=== PATIENT | female | born 1960 | race Caucasian/White ===

== ENCOUNTER 2021-01-08 21:41 | Emergency (ER) | payer OTHER, SELFPAY ==
[2021-01-08 21:44] VITALS: BP 120/76; PULSE 76; RESP 20; TEMP 36.6; O2SAT 99; BMI 18.6
--- NOTE | 2021-01-08 23:30 | ED.ALLEREA ---
HPI - Allergic Reaction General Chief complaint: Allergic Reaction Stated complaint: Allergic Reaction Time Seen by Provider: 01/08/21 22:57 Source: patient Mode of arrival: ambulatory Limitations: no limitations History of Present Illness HPI narrative: 60-year-old female who presents emergency department for evaluation of allergic reaction after drinking wine. She states that in the past sometimes after drinking white line and drinking beer she will get an allergic reaction of her face. She states that between 6:00 p.m. and 8:00 p.m. she drinking half a glass of white wine. She states that when she got home around 8:15 p.m. she began sneezing. She then developed a rash over the bridge of her nose and itchiness in the area of the rash. The rash spread across her face. She then had some tightness in her throat. She took loratadine 5 mg orally with no improvement of her symptoms. She states she then developed heart racing sensation. She denied lightheadedness, dizziness, nausea, vomiting, rash or pruritus on other parts of her body. Related Data Previous Rx's Medication Instructions Recorded prednisone 20 mg tablet 60 mg PO DAILY 5 Days #15 tab 01/08/21 Allergies Allergy/AdvReac Type Severity Reaction Status Date / Time chlorhexidine Allergy Unknown RASH Unverified 02/22/20 17:03 Review of Systems Review of Systems: Yes all other systems are reviewed and are negative [facility] Past Medical History [facility] Narrative: Past medical history: None social history: She denies tobacco use. She occasionally drinks alcohol. She denies drug use. Social History Social History Advance Directives: No Patient : No Physical Exam Vital Signs: Vital Signs: Last Vital Signs Temp 97.8 F 01/08/21 21:44 Pulse 76 01/08/21 21:44 Resp 20 01/08/21 21:44 BP 120/76 01/08/21 21:44 Pulse Ox 99 01/08/21 21:44 Body Mass Index 18.6 Const: General: cooperative and no acute distress Orientation/consciousness: oriented to person and oriented to place Limitations: no limitations HENMT: Head: Yes normal to inspection, Yes normocephalic and Yes atraumatic Ears: external ears normal General nose exam: Normal external nose present Face and sinus: Yes erythema (Over the bridge of the nose and bilateral zygoma area (butterfly pattern)) Mouth: Normal oral and palatal mucosa present Throat: Yes posterior oropharynx normal Eyes: General: appearance normal, both eyes and all related structures Pupils: Equal, round and reactive pupils present Neck: Neck: Yes normal visual inspection, Yes no lymphadenopathy, Yes trachea midline and Yes supple Chest: Chest palpation & inspection: normal inspection of the chest and normal palpation of entire chest wall Resp: Effort & Inspection: normal respiratory effort and able to speak in complete sentences Auscultation: clear to auscultation bilaterally Cardio: Rate: regular rate Rhythm: regular rhythm Heart sounds: S1 normal heart sound present, S2 normal heart sound present and no murmurs GI: Inspection: Yes normal to inspection Palpation (GI): Soft to palpation, nontender and no guarding Auscultation: normal bowel sounds : General: Yes no CVA tenderness Back/Spine/Pelvis: Back: no CVA tenderness Skin: Other: Rash over the bridge of the face extending bilaterally over the zygoma areas and a butterfly pattern, not warm to the touch, blanches with pressure, no urticaria Neuro: General: oriented to person and oriented to place Cranial nerves: Yes CN's II-XII intact bilaterally and Yes Equal, round and reactive pupils present Cognition (Neuro): normal cognition Motor exam (neuro): 5/5 motor strength present throughout Extrem: General: Yes normal to inspection Psych: Appearance: grossly normal Speech and movement: Normal speech and movement present Affect: normal affect Attitude: cooperative Thought process: Normal thought process present Thought content: Normal thought content present Course Course Course Narrative: 60-year-old female who presents emergency department for evaluation of allergic reaction after drinking white line. Patient's physical examination did reveal an erythematous rash of her face involving the bridge of the nose and zygoma areas bilaterally a butterfly pattern. The patient had no other findings on her examination. The patient's presentation is consistent with an allergic reaction most likely secondary to white wine. She states that she cannot take Benadryl since it makes her hyperactive. The patient was given Pepcid 20 mg orally and prednisone 60 mg orally. She was advised to take prednisone 60 mg once a day for 5 days, Pepcid 20 mg once a day for 5 days and loratadine 10 mg daily. The patient was given verbal and printed instructions prior to discharge. The patient was advised to follow-up with her PCP in 2 days and to return to the emergency department if her symptoms get worse or if she develops any new symptoms that are concerning to her. Discharge Plan Discharge Clinical Impression: Allergic reaction Patient Disposition: Home, Self-Care Instructions: Allergies (ED) Additional Instructions: Your presentation and facial rash are consistent with allergic reaction. This is most likely caused by you drinking white wine. You should avoid white wine in the future. Take loratadine 10 mg daily for 5 days. Take prednisone 20 mg pills, 3 pills once a day for 5 days. Take Pepcid 20 mg pills 1 pill once a day for 5 days. Pepcid as an antihistamine and should help reverse earlier Aki reaction. Follow-up with your doctor in 2 days. Please return to the emergency department if your symptoms get worse or if you develop any symptoms that are concerning to you. Prescriptions: New prednisone 20 mg tablet 60 mg PO DAILY 5 Days Qty: 15 RF: 0
[2021-01-08] MEDS: predniSONE 20 MG TABLET 60 MG PO (23:55)
[2021-01-08] MEDS: Famotidine 20 MG TABLET PO (23:55)
--- NOTE | 2021-01-08 23:56 | PC.NURSE ---
Medicated per MAR.
== END 2021-01-08 23:56 | disposition home or self-care (01) ==
PROVIDERS: Emergency Provider Emergency Medicine Emergency Medical Services; PCP Family Medicine
DX: T78.40XA Allergy, unspecified, initial encounter (principal); R21 Rash and other nonspecific skin eruption; X58.XXXA Exposure to other specified factors, initial encounter
CPT/HCPCS: 99283

== ENCOUNTER 2021-01-09 17:37 | Emergency (ER) | payer OTHER, SELFPAY ==
[2021-01-09 18:01] VITALS: BP 119/55; PULSE 80; RESP 17; TEMP 36.9; O2SAT 97; BMI 18.6
--- NOTE | 2021-01-09 18:24 | ED.GENADULT ---
HPI - General Adult General Chief complaint: General Medical Stated complaint: allergies Time Seen by Provider: 01/09/21 18:24 Source: patient Mode of arrival: ambulatory Limitations: no limitations History of Present Illness HPI narrative: 60 y/o female presenting with itchy, watery eyes and facial rash under her nose. She was seen here last night for an allergic reaction after drinking wine. She was prescribed prednisone and had improvement in her symptoms. Later today she started having worsening skin rash under her nose, sneezing and watery eyes. She did not drink any more wine. She does not have any mouth swelling, throat swelling or rash any other place on her body. No SOB, wheezing. She reports a history of seasonal allergies several years but they have been controlled for a long time now. No chest pain or SOB. MD complaint: allergies Onset (ago): day(s) (1) Location: face and eyes Radiation: non-radiation Severity: mild Severity scale (1-10): 3 Quality: burning Pain Consistency: intermittent Relieving factors: medication Exacerbating factors: none Associated symptoms: denies other symptoms Treatments prior to arrival: other (prednisone) Related Data Previous Rx's Medication Instructions Recorded prednisone 20 mg tablet 60 mg PO DAILY 5 Days #15 tab 01/08/21 fluticasone propionate 50 2 spray INTRANASAL DAILY #16 g 01/09/21 mcg/actuation nasal spray,suspension (Flonase Allergy Relief) Allergies Allergy/AdvReac Type Severity Reaction Status Date / Time chlorhexidine Allergy Unknown RASH Verified 01/09/21 18:01 Review of Systems Constitutional: Constitutional: Denies chills, Denies fever(s) and Denies headache(s) Eyes: Eyes: Denies blurry vision, Denies change in vision, Denies eye discharge, Reports dry eyes, Reports itchy eyes, Denies loss of vision and Denies photophobia ENT: Denies otalgia, Denies facial pain, Denies headache(s), Denies lip swelling, Denies mouth lesions, Reports nasal congestion, Denies sore throat, Denies throat swelling and Denies tongue swelling Cardiovascular: Cardiovascular: Denies chest pain and Denies dyspnea Respiratory: Respiratory: Denies dyspnea and Denies wheezing Gastrointestinal: Gastrointestinal: Denies abdominal pain, Denies nausea and Denies vomiting Integumentary/Breasts: Skin/Breast: Reports rash Neurologic: Denies headache(s) and Denies loss of vision Psychiatric: Psychiatric: Reports anxiety Allergic/Immunologic: Allergic/Immunologic: Denies urticaria, Reports itchy eyes, Denies lip swelling, Reports seasonal rhinorrhea, Denies throat swelling, Denies tongue swelling and Denies wheezing PMFSH Past Medical History Medical History Hot flashes Insomnia Toenail fungus Social History Social History Advance Directives: No Advance Directives Information Provided: Yes Patient : No Physical Exam Vital Signs: Vital Signs: Last Vital Signs Temp 98.5 F 01/09/21 18:01 Pulse 80 01/09/21 18:01 Resp 17 01/09/21 18:01 BP 119/55 L 01/09/21 18: Pulse Ox 97 01/09/21 18:01 Body Mass Index 18.6 Appearance: Alert. Oriented X3. No acute distress. Eyes: Pupils equal, round and reactive to light. ENT: Mild erythematous skin in nasolabial fold area, clear nasal discharge, erythematous turbinates bilaterally. Pharynx normal. Neck: Normal inspection. Neck supple. CVS: Normal heart rate and rhythm. Pulses normal. Respiratory: No respiratory distress. Breath sounds normal. Skin: Skin warm and dry. Normal skin color. Normal skin turgor. No rashes. Extremities: No lower extremity edema. Neuro: Oriented X 3. Nonfocal Eyes: Direct Ophthalmoscopy: No photophobia Course Course Course Narrative: 60 y/o female presenting with watery itchy eyes, sneezing and nasal congestion c/w seasonal allergies. Doubt relation to wine allergy. Encouraged to restart Claritin and will also start nasal steroid for local irritation. She has no systemic rashes and lungs are clear. She is stable for discharge with plan to f/u with PCP. Critical Care Time Critical Care Time Critical Care Time: No Discharge Plan Discharge Clinical Impression: Allergies Qualifiers: Encounter type: subsequent encounter Qualified Code(s): T78.40XD - Allergy, unspecified, subsequent encounter Patient Disposition: Home, Self-Care Instructions: Allergy Testing (ED), General Allergic Reaction (ED) Additional Instructions: Take the prednisone as prescribed. Recommend Claritin daily. Use the prescribed nasal spray as directed. Use topical Benadryl as needed for itching, found over the counter. Follow up with your doctor in 1 week. Prescriptions: New fluticasone propionate [Flonase Allergy Relief] 50 mcg/actuation spray,suspension 2 spray intranasal DAILY Qty: 16 RF: 0 No Action prednisone 20 mg tablet 60 mg PO DAILY 5 Days Qty: 15 RF: 0
== END 2021-01-09 18:58 | disposition home or self-care (01) ==
PROVIDERS: Emergency Provider Emergency Medicine; PCP Family Medicine
DX: L50.0 Allergic urticaria (principal); Z79.899 Other long term (current) drug therapy
CPT/HCPCS: 99283

== ENCOUNTER 2024-01-06 12:54 | Outpatient (AMB) | payer OTHER, SELFPAY ==
--- NOTE | 2024-01-06 13:03 | MHC.OFFVIS ---
Vital Signs 01/06/24 13:04 Height 5 ft 3 in Weight 101 lb BMI 17.9 BP 110/60 Blood Pressure Location Rt brachial Position Sitting Respiration 16 Pulse 79 Pulse Source Pulse Oximeter Pulse Oximetry (%) 99 Oxygen Delivery Method Room Air Intake Visit Reasons: ENP: Essential Tremors - Confirmed Intake Note: Pt presents for new pt consultation for essential tremors. Equipment Application Specialist Required: No Allergies chlorhexidine Allergy (Unknown, Verified 01/06/24 13:03) RASH HPI Comments Details: 63y/o Right handed female comes for evaluation of abnormal movements.. she started having Ramiro TMJ issues about 2 years and since then she started noticing muscle twitch in her left cheek. she went to PT for TMJ and it improved but she still had muscle twitches and PT suggested seeing a neurologist. The past 6 mths the abnormal twitching has resolved. she denies any hand tremors or leg tremors. she noticed the twitches when she tried to drink water. she denies pain associated with twitch. she is very sensitive to noise and she uses large ear phone sor muffs but since her tMj started bothering her she is unable to use it. [facility] Medical History (Updated 01/06/24 @ 13:50 by Alicja Lainez MD) TMJ (temporomandibular joint syndrome) Muscle spasm Insomnia Toenail fungus Hot flashes Surgical History (Updated 01/06/24 @ 13:09 by Jen Marin CMA) H/O hernia repair H/O eye surgery Hx of tonsillectomy Family History (Updated 01/06/24 @ 13:10 by Jen Marin CMA) Father No problems noted. Mother No problems noted. Social History (Updated 01/06/24 @ 13:10 by Jen Marin CMA) Household Members: None Housing: Condominium Alcohol intake: current Comment: seldom Patient Tobacco Use Status: Never used Tobacco Use of substances other than those prescribed or required for medical reasons: No Physical Exam Vital Signs: Last Vital Signs Pulse 79 01/06/24 13:04 Resp 16 01/06/24 13:04 BP 110/60 01/06/24 13:04 Pulse Ox 99 01/06/24 13:04 Oxygen Delivery Method Room Air 01/06/24 13:04 BMI result Body Mass Index 17.9 Const General: cooperative, healthy appearing and comfortable Nutritional Appearance: average body habitus Orientation/consciousness: patient oriented x3 Eyes Pupils: Equal, round and reactive pupils present Neuro Other: tight neck and jaw muscle No abnormal twitches or movements General: patient oriented x3, gait normal, tone normal, moves all extremities and no focal motor deficits Cranial nerves: Yes Facial sensation intact/muscles of mastication intact, Yes Equal, round and reactive pupils present, Yes Bilaterally intact EOM present, Yes Nystagmus not present, Yes Normal facial strength present, Yes Midline tongue present and Yes Symmetric palate elevation present Cognition (Neuro): normal cognition Gait exam (Neuro): Normal gait present Motor exam (neuro): 5/5 motor strength present throughout Deep tendon reflexes (DTR's): Right triceps reflex intensity grade: 2+, Left triceps reflex intensity grade: 2+, Rt Biceps (C5, C6): 2+, Left biceps reflex intensity grade: 2+, Right brachioradialis reflex intensity grade: 2+, Left brachioradialis reflex intensity grade: 2+, Right patellar reflex intensity grade: 2+ and Left patellar reflex intensity grade: 2+ Coordination: [id number] test normal Assessment & Plan Assessment & Plan (1) Muscle spasm: Comment: related to TMJ resolved Code(s): M62.838 - Other muscle spasm Category: Medical (2) TMJ (temporomandibular joint syndrome): Code(s): M26.609 - Unspecified temporomandibular joint disorder, unspecified side Category: Medical Plan Continue TMJ exercises Suggested neck exercises Will consider muscle relaxers if the twitches recur Coding Level of Care Code New Pt Level 3 (22175) Diagnoses Muscle spasm M62.838 TMJ (temporomandibular joint syndrome) M26.609
[2024-01-06 13:04] VITALS: BP 110/60; PULSE 79; RESP 16; O2SAT 99; BMI 17.9
== END 2024-01-06 14:03 | disposition home or self-care (01) ==
PROVIDERS: PCP Family Medicine; Visit Provider Psychiatry & Neurology Neurology
DX: M62.838 Other muscle spasm (principal); M26.609 Unspecified temporomandibular joint disorder, unspecified side
CPT/HCPCS: 99203

== ENCOUNTER → 2024-01-06 12:54 | Outpatient (BNVA) | payer OTHER, SELFPAY | PROVIDERS: PCP Family Medicine; Visit Provider Psychiatry & Neurology Neurology ==

== ENCOUNTER 2025-01-17 11:12 | Outpatient (AMB) | payer OTHER, SELFPAY ==
--- NOTE | 2025-01-17 11:20 | A.OFFVIS_ITS ---
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 Worse with over use of hands. She enjoys staying active, biking and swimming and says her symptoms are greater when biking or lifting weights. Per her [facility] referral her pain is more in hands distal to wrist than in fingers/joints. Patient states pain is on the back of both hands, she is also having left hand pain on her palm area from a fall about 1 year ago while playing pickle ball. States she was advised to do P.T at the time, with good relief. Denies numbness, tingling or locking of any finger. No EMG done. 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 She complains of bilateral hand pain, R>L, and worse with overuse & activities. Her pain is primarily in the back of her hands as opposed to her fingers. She denies pain during the day and says the majority of her pain occurs at the end of the day, in the evening & overnight. She also complains of intermittent left palm pain for ~1 year after a fall playing Pickleball. She did PT for this, which she found helpful She stays active with biking, swimming, and lifting weights. She says it does not usually hurt during the activity, but rather in the evening when she goes to bed. It is relieved by placing salon pause patches on the back of her hands.. She denies any numbness, tingling, locking, or catching. She finds relief from topical treatments. [facility] Medical History (Updated 01/17/25 @ 11:39 by Jessica Carbajal MD) TMJ (temporomandibular joint syndrome) Muscle spasm Insomnia Toenail fungus Hot flashes Surgical History H/O hernia repair H/O eye surgery Hx of tonsillectomy Family History (Updated 01/06/24 @ 13:10 by Jen Marin CMA) Father No problems noted. Mother No problems noted. 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 Review of Systems Const All systems reviewed & are unremarkable except as noted in HPI and below Physical Exam Vital Signs: BMI result Body Mass Index 18.6 Const General: cooperative, healthy appearing and no acute distress Orientation/consciousness: patient oriented x3 HEENT Head: Yes normocephalic and Yes atraumatic Eyes EOM: EOMs intact bilaterally Resp Effort & Inspection: normal respiratory effort and able to speak in complete sentences Cardio Jugular venous distension: no JVD Skin General skin exam: turgor normal Rashes: no rashes Neuro General: patient oriented x3 Extrem Other: Evaluation of Bilateral Upper Extremity: The patient is alert, oriented, and in no acute distress Neuro: Median, Ulnar, Radial nerves motor and sensory intact and sensation is normal to the tips of all digits Vascular: Cap refill brisk ROM: She can make a fist and extend all her digits No locking or catching Smooth & painless wrist ROM without pain Skin: No lacerations or abrasions. General: No Ecchymosis. No Erythema or evidence of infection. She demonstrates her discomfort over the dorsal aspect of the metacarpals No tenderness over this area No pain with resisted wrist or finger extension Psych Appearance: grossly normal Affect: normal affect Attitude: cooperative Assessment & Plan Assessment & Plan (1) Bilateral hand pain: Code(s): M79.641 - Pain in right hand; M79.642 - Pain in left hand Category: Medical Plan Assessment & Plan: 1. Bilateral hand pain Likely some extends her tendinitis, affected by certain prolonged exercises Onset ~1 year now, improved after resting I educated her about this condition I discussed treatment options I recommend activity modification & OT hand therapy, and she is in agreement I ordered OT hand therapy to work on normalizing function I discussed activity modification, she should limit or avoid overuse strenuous activities using her hands, and slowly increase her activity levels as tolerated She will follow up prn Scribed for Jessica Carbajal MD by Bonifacio Demarco, medical administrative technician, on 01/17/25 at 11:30 AM, EST. Orders: Orders OT Evaluation and Treatment Today M79.641 - Pain in right hand, M79.642 - Pain in left hand Coding Level of Care Code New Pt Level 3 (30984) Diagnoses Bilateral hand pain M79.641; M79.642
[2025-01-17 11:22] VITALS: BMI 18.6
--- OUTSIDE RECORDS SUMMARY | 2025-01-17 12:12 | XMS_ITS | Clinical Summary ---
Author Organization [facility] Address [address] [facility] [address] [place] [address] Phone Care Team Providers Care Board Of Education Secretary Name Role Phone Maris Walter MD Unavailable [phone] Aminah Reyna MD Unavailable Maris Walter MD Primary Care Provider Allergies Active Allergy Reactions Criticality Noted Date Comments Adhesive 11/26/2021 Chlorhexidine 11/26/2021 Other Rash Low 07/15/2017 cloraprep skin cleanser Medications zolpidem (AMBIEN) 5 MG tablet Take 5 mg by mouth nightly at bedtime as needed. Active LORazepam (ATIVAN) 0.5 MG tablet 1 tablet at bedtime as needed Active MULTIVIT WITH MINERALS/LUTEIN (MULTIVITAMIN 50 PLUS ORAL) Active VIVELLE-DOT 0.05 mg/[address] 1 patch onto the skin once a week. 13 patch 3 022 Active gabapentin (NEURONTIN) 300 MG capsule TAKE 1 CAPSULE BY MOUTH EVERY DAY 90 capsule 1 023 Active Additional Information Patient taking differently: 300 mgOralNightly, Reported on 05/26/2023 cyclobenzaprine (FLEXERIL) 5 MG tablet Take 5 mg by mouth nightly at bedtime as needed. 1-2 tabs as needed for TMJ 023 Active ondansetron (ZOFRAN-ODT) 4 MG disintegrating tablet Take 1 tablet (4 mg total) by mouth every 8 (eight) hours as needed. 20 tablet 024 Active medroxyPROGESTERo ne (PROVERA) 2.5 MG tabletIndications :Hormone replacement therapy TAKE 1 TABLET BY MOUTH DAILY FOR 12 DAYS EVERY 3 MONTHS 12 tablet 2 025 Active medroxyPROGESTERo ne (PROVERA) 2.5 MG tabletIndications :Hormone replacement therapy TAKE 1 TABLET BY MOUTH DAILY. X 12 DAYS EVERY 3 MONTHS 12 tablet 2 024 2024 Discontinued Active Problems Problem Noted Date Diagnosed Date Left temporomandibular joint disorder, unspecifi ed 11/27/2021 Hormone replacement therapy 02/26/2021 Overview (09/03/2022): Viville Dot 0.05 (brand name only) + quarterly medroxyp Also uses qhs Gabapentin Monoallelic mutation of CHEK2 gene in female pat ient 07/15/2017 Assessment & Plan (03/04/2022 1:08 PM EDT): Continue with the breast MRIs and mammograms and follow-up with the oncologist. She will talk with her oncologist about ongoing use of the HRT, the option of SERM Assessment & Plan (07/08/2020 1:33 PM EST): Increased risk for breast cancer and thus a concern re continued use of HRT for severe hot flashes States that risk is 25-30 and she would not want bilateral mastectomy as prevention (I am not certain if this was offered or not) Assessment & Plan (08/04/2018 4:54 PM EST): [place] [facility] [place] Assessment & Plan (07/15/2017 11:29 AM EST): Plan is for raloxifene once she stops HRT this month Resolved Problems Problem Noted Date Diagnosed Date Resolved Date Hot flashes 07/08/2020 09/03/2022 Overview (07/08/2020): Ongoing and worsening as evidecned be her need to change the vivelle patch (Rx'd as twice weekly) every 7-8 days when she used to be able to get 10 days Also increased gabapentin Assessment & Plan (07/08/2020 1:32 PM EST): OTC not effective in past; SSRIs - sig side effects , clonidine - has low BP at baseline Option for the combined pill conjugated estrogen with SERM bazedoxifene- neg impact on endometrium, may be neg on breast as well; higher risk of DVT compared to patch Encounter for gynecological examination without abnormal finding 02/21/2020 07/08/2020 Encounters Date Type Department Care Team Description 01/15/2025 10:45 AM EDT Office Visit [address] [address] Maris Walter MD Menard-Johns ton, Erin, PT Scapular dyskinesis (Primary Dx) 01/06/2025 Refill [facility] [address] [place] [address] Aminah Reyna MD Medication Refill 01/03/2025 8:30 AM EDT Office Visit [address] [address] Maris Walter MD Menard-Johns ton, Erin, PT Scapular dyskinesis (Primary Dx) 01/01/2025 2:15 PM EDT Office Visit [address] [address] Maris Walter MD Menard-Johns ton, Erin, PT Scapular dyskinesis (Primary Dx) 12/06/2024 9:15 AM EDT Office Visit [address] [address] Maris Walter MD Menard-Johns ton, Erin, PT Scapular dyskinesis (Primary Dx) 12/04/2024 9:15 AM EDT Office Visit [address] [address] Maris Walter MD Menard-Johns ton, Erin, PT Scapular dyskinesis (Primary Dx) 11/29/2024 9:00 AM EDT Office Visit [address] [address] Maris Walter MD Norma, Yolanda, PROPERTY CLAIM REP Scapular dyskinesis (Primary Dx) 11/27/2024 9:15 AM EDT Office Visit [address] [address] Maris Walter MD Menard-Johns ton, Erin, PT Scapular dyskinesis (Primary Dx) 11/21/2024 10:45 AM EDT Office Visit [address] [address] Maris Walter MD Menard-Johns ton, Erin, PT Scapular dyskinesis (Primary Dx) 11/16/2024 1:30 PM EDT Office Visit [address] [address] Maris Walter MD Menard-Johns ton, Erin, PT Scapular dyskinesis (Primary Dx) 11/15/2024 Transcribe Orders Virtual Department [address] [place] [address] Maris Walter MD Asymptomatic menopausal state (Primary Dx) from Last 3 Months Family History Medical History Relation Comments Cancer Father No Known Problems Mother Breast cancer Paternal Aunt Breast cancer Sister 1 Relation Status Comments Brother Alive Father Mother Alive Paternal Aunt Sister 1 Alive Sister 2 Alive Social History Tobacco Use Types Packs/Day Years Used Date Smoking Tobacco: Never Smokeless Tobacco: Never Tobacco Cessation:Counseling Given: Not Answered Alcohol Use Standard Drinks/Week Comments Yes 0 (1 standard drink = 0.6 oz pur e alcohol) 0-1 drinks in a week Education Answer Date Recorded Are you interested in more education? Not on wilson e 10/02/2022 Are you concerned about learning? Not on file 10/02/2022 No 10/02/2022 No 10/02/2022 Digital Access Answer Date Recorded No 11/02/2022 No 11/02/2022 Reliable internet access at home? Not on file 11/02/2022 Device with a working camera? Not on file Intimate Partner Violence Answer Date R ecorded Are you denied basic needs s uch as food, clothing, or medical care? No 11/26/2023 In the past 12 months have y ou been in a relationship with a person who hurts, threatens, or tries to control you? No 11/26/2023 Are you denied basic needs s uch as food, clothing, or medical care? No 11/26/2023 In the past 12 months have y ou been in a relationship with a person who hurts, threatens, or tries to control you? No 11/26/2023 Comments No Sex and Gender Information Value Date Recorded Sex Assigned at Female 02/23/2021 6:16 PM EDT Legal Sex Female 9:49 PM EDT Gender Identity Female 02/23/2021 6:16 PM EDT Sexual Orientation Lesbian or Azevedo 02/23/2021 6: 16 PM EDT Last Filed Vital Signs Vital Sign Reading Time Taken Comments Blood Pressure 92/60 11/27/2023 2:15 AM EDT Pulse 83 11/27/2023 2:15 AM EDT Temperature 37.5 C (99.5 F) 11/27/2023 2:15 AM EDT Respiratory Rate 16 11/27/2023 2:15 AM EDT Oxygen Saturation 97% 11/27/2023 2:15 AM EDT Inhaled Oxygen Concentration - - Weight 45.5 kg (100 lb 5 oz) 11/26/2023 10:00 PM EDT Height 160 cm (5' 2.99 ) 11/26/2023 10:00 PM EDT Body Mass Index 17.77 11/26/2023 10:00 PM EDT Plan of Treatment Upcoming Encounters Date Type Department Care Team (Late st Contact Info) Description 01/17/2025 1:50 PM EDT Office Visit [facility] [address] [place] [address] [place] [address] Aminah Reyna MD [address] [place] [address], [address] [place] [address] 01/24/2025 9:15 AM EDT Office Visit [facility] [address] [place] [address] Maris Walter MD [address] [place] [address] [email or web address], PT [address] [place] [address] [email or web address] 01/31/2025 9:15 AM EDT Office Visit [address] [address] Maris Walter MD [address] [place] [address] [email or web address] Anabel Whitmore, PT [address] [place] [address] [email or web address] 02/07/2025 9:15 AM EDT Office Visit [address] [address] Maris Walter MD [address] [place] [address] [email or web address] Anabel Whitmore, PT [address] [place] [address] [email or web address] 02/12/2025 6:30 PM EDT Appointment [facility] - [address] [address] Maris Walter MD [address] [place] [address] 02/14/2025 9:15 AM EDT Office Visit [address] [address] Maris Walter MD [address] [place] [address] [email or web address] Anabel Whitmore, PT [address] [place] [address] [email or web address] 02/28/2025 9:15 AM EDT Office Visit [address] [address] Maris Walter MD [address] [place] [address] [email or web address] Anabel Whitmore, PT [address] [place] [address] [email or web address] 03/07/2025 9:15 AM EDT Office Visit [address] [address] Maris Walter MD [address] [place] [address] [email or web address] Anabel Whitmore, PT [address] [place] [address] Health Maintenance Due Date Last Done Comments LIPID PANEL 1960 DEPRESSION SCREENING 1971 HEPATITIS C SCREENING 08/17/1977 HIV ONE-TIME SCREENING (18-65 YEARS) 08/17/1977 MAMMOGRAM 1999 COLOGUARD 08/17/2004 FIT TEST 08/17/2004 FOBT 08/17/2004 SIGMOIDOSCOPY 08/17/2004 VIRTUAL COLONOSCOPY 08/17/2004 PNEUMOCOCCAL VACCINES (50+ years) (1 of 1 - PCV) 08/17/2009 COVID-19 VACCINE (2023- season) 2024 05/22/2022, 01/12/2022, 05/22/2021, Additional history exists OSTEOPOROSIS SCREENING INITIAL (ONE-TIME) 08/17/2024 PAP SMEAR 10/25/2025 10/25/2020, 11/0 01/2016, 03/31/2016 Adult Td,Tdap Booster 04/05/2030 04/05/2020, 013 COLONOSCOPY 11/25/2033 11/26/2023 COLORECTAL CANCER SCREENING 11/25/2033 RSV VACCINE (1 - 1-dose 75+ series) 08/17/2034 ZOSTER VACCINES Completed 02/21/2018, 01/2018, 01/01/2015 SMOKING STATUS SCREENING (Once After 26 Yrs) Completed 11/26/2023 HEPATITIS A VACCINES Aged Out No long er eligible based on patient's age to complete this topic HIB VACCINES Aged Out No longer eligi ble based on patient's age to complete this topic MENINGOCOCCAL VACCINES (ACWY) Aged Out No longer eligible based on patient's age to complete this topic MENINGOCOCCAL VACCINES (B) Aged Out N o longer eligible based on patient's age to complete this topic Medical Devices Not on file Procedures Procedure Name Priority Date/Time Associated Diagnosis Comments ENDOSCOPY, COLON 11/26/2023 9:13 AM EDT PAP TEST Routine 10/25/2020 12:00 AM EDT from Last 3 Months or Most Recently Relevant to Health Maintenance Results * ENDOSCOPY, COLON (11/26/2023 9:13 AM EDT) Narrative Transcriptions Debbie Boykin MD, MPH - 11/26/2023 9:13 AM EDT [facility] Patient Name: Lonnie Ceferino Lin MD:: DEBBIE BOYKIN MD, Procedure Date: 11/26/2023 9:13 AM Date of : 1960 Age: 63 Admit Type: Outpatient Gender: Female Room: [facility]NOTE 3] Referring MD: Maris Walter Exam Type: Colonoscopy Indications: Screening for colorectal malignant neoplasm Medications: Monitored Anesthesia Care Procedure: Informed consent was obtained from the patientafter discussion of the indications, limitations, alternatives, benefits, and risks of the procedure. Risks specifically discussed include but are not limited to medication reactions, missed lesions, bleeding, perforation, or the need for emergent surgery. Throughout the procedure, the patient's blood pressure, pulse, end-tidal CO2, and oxygensaturations were monitored continuously. The Olympus pediatric variable colonoscopePCF-[id number] #6 was introduced through the anus and advanced tothe cecum, identified by appendiceal orifice andileocecal valve. The colonoscopy was performed without difficulty. The patient tolerated the procedurewell. The quality of the bowel preparation was evaluated using the BBPS (Liberal Bowel Preparation Scale)with scores of: Right Colon = 3, Transverse Colon = 3and Left Colon = 3 (entire mucosa seen well with no residual staining, small fragments of stool oropaque liquid). The total BBPS score equals 9. Theileocecal valve, appendiceal orifice, and rectum were photographed. Complications: No immediate complications. Findings: The perianal and digital rectal examinations were normal. A 6 mm polyp was found in the cecum. The polyp was sessile. The polyp was removed with a cold snare. Resection and retrieval were complete. A few small-mouthed diverticula were found in theleft colon. The exam was otherwise without abnormality ondirect and retroflexion views. Impression: - One 6 mm polyp in the cecum, removed with a cold snare. Resected and retrieved. - Diverticulosis in the left colon. - The examination was otherwise normal on directand retroflexion views. Recommendation: - Await pathology results. - Repeat colonoscopy in 5 years for surveillancebased on CHEK2 genetic mutation. Dr Debbie Boykin DEBBIE BOYKIN MD 11/26/2023 9:44:27 AM This report has been signed electronically. Number of Addenda: 0 Note Initiated On: 11/26/2023 9:13 AM Procedure Code(s): --- Professional --- 82065, Colonoscopy, flexible; with removal of tumor(s), polyp(s), or other lesion(s) by snare technique --- Technical --- 24459, Colonoscopy, flexible; with removal of tumor(s), polyp(s), or other lesion(s) by snare technique Diagnosis Code(s): --- Professional --- Z12.11, Encounter for screening for malignantneoplasm of colon D12.0, Benign neoplasm of cecum K57.30, Diverticulosis of large intestine without perforation or abscess without bleeding --- Technical --- Z12.11, Encounter for screening for malignantneoplasm of colon D12.0, Benign neoplasm of cecum K57.30, Diverticulosis of large intestine without perforation or abscess without bleeding CPT copyright 2021 [employer]. All rights reserved. The codes documented in this report are preliminary and upon proposal writer reviewmay be revised to meet current compliance requirements. Procedure Date: 11/26/2023 9:13:[address] [place] [address] Maris Walter MD GI PROCEDURE ORDERABLES Pat l Result * Pap Smear (10/25/2020 12:00 AM EDT) 10/25/2020 10/28/2020 8:5 6 AM EDT Narrative SEE NARRATIVE - 11/03/2020 12:04 PM EDT [address] [address] Gauge Controller: Yolanda Coto MD INSPECTOR AND MENDER Cytology Report FINAL DIAGNOSIS A. PAP SMEAR (SUREPATH) CE: SPECIMEN ADEQUACY: Satisfactory for evaluation; transformation zone present. INTERPRETATION: NEGATIVE FOR INTRAEPITHELIAL LESION OR MALIGNANCY. Reactive changes. Electronically Signed Out By: Erik Mrac, CT(ASCP) By his/her signature above, the pathologist listed as making the Final Diagnosis certifies that he/she has personally reviewed this case and confirmed or corrected the diagnosis. The Pap test is a screening test primarily for squamous cancers and precursors and has associated false-negative and false-positive results. New technologies such as liquid-based preparations may decrease but will not eliminate all false-negative results. Regular sampling and follow-up of unexplained clinical signs and symptoms are recommended to minimize false negative results. PROCEDURES/ADDENDA HPV Testing (Requested) Ordered Date: 10/28/2020 A. PAP SMEAR (SUREPATH) CE: Human Papilloma Virus Test Negative for high-risk human papillomavirus types 16, 18, 45 and the Other high risk probe set (Includes 31, 33, 35, 39, 51, 52, 56, 58, 59, 66, 68) by [facility] [employer] HR-HPV analysis. Clinical correlation is advised. This HPV test was performed at [facility], [address] [place] [address]. This test has been FDA approved for SurePath cervical cytology specimens. The accuracy and precision of this test for all other specimen sources has been verified in the Cytopathology Laboratory of the [facility] and has not been cleared or approved by the U.S. Food and Drug Administration. Clinical correlation is advised. CLINICAL HISTORY Date of Last Menstrual Period: Not Provided Menstrual History: Post Menopausal Treatment History: Hormone Therapy Other Clinical Conditions: Screening Pap SPECIMEN SOURCE A: PAP SMEAR (SUREPATH) CE Patient Name: LONNIE DE LA VEGABianca : 1960 (Age: 60) Sex: F Institution: [facility] Location: [facility] Date of Collection: 10/25/2020 Date of Reported: 11/03/2020 12:04 Results to: Maris Walter MD us Maris Walter MD CYTOLOGY ORDERABLES Final Re sult SEE NARRATIVE from Last 3 Months or Most Recently Relevant to Health Maintenance Insurance [facility] [employer] POS MEDICARE A [facility] EX[employer] POS MEDICARE A [facility] EX[employer]ER POS MEDICARE A [facility] EX[facility] POS MEDICARE [place] [address] [address] EXPLORER POS MEDICARE A [facility] EXPL[employer]ER POS MEDICARE A Care Teams Board Of Education Secretary Relationship Specialty Start Date End Date Maris Waltre MD [address] [place] [address] PCP - General Family Medicine 08/10/23 Maris Walter MD Historical LMR Provider 03/23/17 Aminah Reyna MD [address] [place] [address] [email or web address] Historical LMR Provider 03/23/17 Additional Source Comments The information contained in this document represents components of the legal health record. It is not the complete legal health record.[facility]
--- OUTSIDE RECORDS SUMMARY | 2025-01-17 12:12 | XMS_ITS | Patient Health Record ---
Author Organization [facility] Address [address] [place] [address] Care Team Providers Care Field Talent Qualification Specialist Name Role Phone Paula Valdovinos MD Primary Care Provider Rome Mondragon Unavailable [phone] Reason For Referral No Information Medications Medication SIG (Take, Route, Frequency, Duration) Notes Start Date End Date Status Doxycycline (Rosacea) Active Ambien 0.25mg Active Doxycycline Calcium 100mg Twice a day Active clonazePAM 0.25mg Ac tive Problems Problem Type SNOMED Code ICD Code Onset Dates Problem Status W/U Status Risk Notes Problem Cellulitis and abscess of toe (727579957) Celluitis - Toes (681.10) Active confirmed Problem Cellulitis and abscess of finger (160597848) Subungual, Abscess (681.9) Active confirmed Plan Of Treatment Pending Test Test Name Order Date 68520 I&D ABSCESS- SIMPLE,SINGLE 014 Insurance Providers Payer Name Payer Address Payer Phone Subscriber Number Group Number Insured Name Patient Relationship to Insured Coverage Start Date Coverage End Date [facility] Navigator [address] [facility] [place] [address] [id number] Lisa De La Vega Self - patient is the insured Medical (General) History Medical History History ICD Code Hiatal hernia Chicken pox Surgical History Surgery Date(Month/Year) eye surgery tonsillectomy hernia
== END 2025-01-17 11:39 | disposition home or self-care (01) ==
LOC: HO.HOS 11:13
PROVIDERS: PCP Family Medicine; Visit Provider Orthopaedic Surgery
DX: M79.641 Pain in right hand (principal); M79.642 Pain in left hand
CPT/HCPCS: 99203

== ENCOUNTER 2025-03-09 14:30 | Outpatient (RCR) | payer OTHER, SELFPAY ==
--- NOTE | 2025-01-26 15:07 | MHC.OT.EP ---
[facility] Office [address] [phone] F: [phone] F: [phone] Occupational Therapy Plan of Care Patient Name: Lisa De La Vega Date of Evaluation: 01/26/25 Diagnosis: B/L HAND PAIN Pain Location: B/L DORSAL HANDS, ALTERNATES YET RECENTLY R >L 2/10 R HAND AT REST, 5/10 AFTER USE 1/10 L HAND AT REST, 4/10 AFTER USE Pain Score: 1-5/10 Pain Scale Used: Numeric (0 - 10) Aggravating Factors: EXERCISE, PROLONGED GRIPPING WHEN BIKING Alleviating Factors: SALONPAS PADS NIGHTLY, PURCHASED COMPRESSION GLOVES, TYLENOL/ ASPRIN PRN Assessment: MS DE LA VEGA REPORTS A ONE YEAR HISTORY OF B/L DORSAL HAND PAIN. SHE SPENDS PROLONGED TIME IN PRONATION, WITH TYPING/ WORK RELATED TASKS OR IADLs INCLUDING BICYCLING, SWIMMING AND LIFTING WEIGHTS. SHE STATES THE PAIN IS THE WORSE IN THE EVENING AND IS UTILIZING SALONPAS PADS AND COMPRESSION GLOVES TO ALLEVIATE PAIN. A 16% LIMITATION IS REPORTED PER THE QUICK DASH ASSESSMENT. ONGOING SKILLED OT IS WARRANTED TO ADDRESS STRENGTH, ACTIVITY MODIFICATIONS, JOINT PROTECTION AND IMPROVE QOL. Frequency and Duration: The patient will be seen 1X/WEEK FOR 4 WEEKS Short Term Goals: SEE BELOW Grain Broker And Market Operator Goals: IND HEP IND JT PROTECTION/ACTIVITY MODIFICATIONS IND HEAT MODALITIES, EXPLORE HOME PARAFFIN UNIT DEMO PROPER ERGONOMIC WORK STATION SETUP WITH PROPER BODY MECHANICS Treatment Plan: Therapeutic Exercise Therapeutic Activity Home Exercise Program Splinting Neuro Re-ed Patient Education Desensitization/Sensory Re-ed Edema Control ADL Training Ultrasound NMES Iontophoresis Paraffin Fluidotherapy MHP Cold Packs Joint Mobilization Soft Tissue Mobilization Kinesiotaping Electronically Signed By: UMER VALDES OTR/L Please Sign and return to therapist. Thank you once again for your referral.
--- NOTE | 2025-03-09 14:58 | MHC.OT.DC ---
[facility] Office [address] [phone] F: [phone] F: [phone] Occupational Therapy Discharge Note Patient Name: Lisa De La Vega Provider: Jessica Carbajal Diagnosis: B/L HAND PAIN Date of Evaluation: 01/26/25 Date of Discharge: 03/09/25 Treatments to Date: 3 Cancellations to Date: 3 No Shows to Date: 0 Discharge Status: Achieved Goals Improved Function Independent with HEP Discharge Summary: MS DE LA VEGA HAS MET HER OT GOALS AND UNDERSTANDS PROGRESSION OF HEP. SHE REMAINS MOSTLY PAINFREE USING JT PROTECTION STRATEGIES AND ACTIVITY MODIFICATIONS. D/C OT SERVICES. Electronically Signed By: GEM SEXTON/Viridiana Reviewed/agree with student documentation: N/A Therapist: Please Sign and return to therapist, thank you for your referral.
== END 2025-03-09 14:55 | disposition home or self-care (01) ==
LOC: HO.OT 14:30
PROVIDERS: PCP Family Medicine; Visit Provider Orthopaedic Surgery
DX: M79.641 Pain in right hand (principal); M79.642 Pain in left hand
CPT/HCPCS: 97110; 97165